=== PATIENT | male | born 1955 | race Caucasian/White ===

== ENCOUNTER 2017-10-04 03:56 | Emergency (ER) | payer OTHER ==
[~2017-10-04] VITALS: Ht 172.7 cm; Wt 87.9 kg
[~2017-10-04 03:56] MED LIST: ESZOPICLONE3 MG PO; FENOFIBRIC ACI135 MG PO; FLEXERIL10 MG PO; HYCODAN SYRUP480 ML PO; NAPROSYN500 MG PO; ONGLYZA5 MG PO; PAROXETINE HCL30 MG PO; PREDNISONE20 MG PO; PROAIR HFA8.5 GM IH; QUETIAPINE FUM300 MG PO; SIMVASTATIN40 MG PO
[2017-10-04] MEDS ORDERED: AMOXICILLIN500 M1 PO (04:30)
[2017-10-04] MEDS ORDERED: NORCO 5/3251 TABLET PO (04:30)
[2017-10-04 04:44] VITALS: BP 131/91
== END 2017-10-04 04:45 | disposition home or self-care (01) ==
LOC: EME 03:56
PROC: 3E0T3BZ Introduction of Anesthetic Agent into Peripheral Nerves and Plexi, Percutaneous Approach (ICD-10-PCS; principal; 2017-10-04)
DX: K02.9 Dental caries, unspecified (principal)
CPT/HCPCS: 99281; 99283